=== PATIENT | female | born 1975 | race Caucasian/White ===

== ENCOUNTER 2018-05-03 14:47 | Emergency (ER) | payer MEDICAID, OTHER ==
[~2018-05-03] VITALS: Ht 167.6 cm; Wt 90.7 kg
--- NOTE | 2018-05-03 15:24 | Emergency Room Report ---
History of Present Illness General Chief Complaint: Upper Respiratory Illness Source: Patient (Shree Xiao) Present Illness HPI 42-year-old female patient presents ER complaining of cough for the past 4 days. Reports Raynaud's and congestion during this time. reports cough with sputum, denies hemoptysis. Reports that she has been taking NyQuil and DayQuil for relief of symptoms, last and took DayQuil this morning. Reports history of similar symptoms in the past prior to the onset of bronchitis so she came to the ER to be checked out. Denies difficulty breathing or shortness of breath. Denies fever, chest pain, abdominal pain, vomiting. Denies recent travel or periods of immobilization. Denies smoking cigarettes. Denies calf pain. Denies denies taking control medication. Denies history of heart attack or heart disease. (Shree Xiao) Allergies: Coded Allergies: No Known Allergies (Verified Allergy, Unknown, 08/17/08) Patient History Past Medical History: see triage record Last Menstrual Period: 04/17/18 Now: No Reviewed Nursing Documentation: PMH: Agreed; PSxH: Agreed (Shree Xiao) Nursing Documentation-PMH Past Medical History: No History, Except For (Shree Xiao) Review of Systems All Other Systems: negative except mentioned in HPI (Shree Xiao) Physical Exam Vital Signs Date Time Temp Pulse Resp B/P (MAP) Pulse Ox O2 Delivery O2 Flow Rate FiO2 05/03/18 15:06 99.1 92 18 112/78 95 Room Air 99.1 Sp02 EP Interpretation: reviewed, normal General Appearance: well appearing, no apparent distress, alert, GCS 15, non- toxic Head: normocephalic, atraumatic Eyes: bilateral eye normal inspection, bilateral eye PERRL ENT: hearing grossly normal, normal pharynx, no angioedema, normal voice, TMs + canals normal, uvula midline, moist mucus membranes Neck: full range of motion Respiratory: lungs clear, normal breath sounds, no rhonchi, no respiratory distress, no accessory muscle use, no wheezing, speaking full sentences Cardiovascular #1: regular rate, rhythm, no edema Gastrointestinal: non tender, soft, no mass, non-distended, no guarding, no rebound Musculoskeletal: back normal, digits/nails normal, gait/station normal, normal range of motion, non-tender, no calf tenderness, Juan A's Sign negative Neurologic: alert, oriented x3, responsive, motor strength/tone normal, sensory intact Psychiatric: mood/affect normal Skin: no rash Lymphatic: no adenopathy (Shree Xiao) Medical Decision Making PA Attestation Dr. Thomas is my supervising Physician whom patient management has been discussed with. (Shree Xiao) Diagnostic Impression: Primary Impression: Upper respiratory infection ER Course Pt presents to ED c/o cough for 4 days. DDX considered but are not limited to influenza, viral URI, pneumonia, strep throat, rhinitis, sinusitis, otitis media, bronchitis. Lungs clear to auscultation, no wheezes, rhonci or rales. patient afebrile. due to history of bronchitis, will order chest x-ray to rule out pneumonia. negative Homans sign, denies cigarettes or control medication, no chest pain, no tachycardia, no recent travel or periods of immobilization, low suspicion for PE per PERC criteria. VITAL SIGNS are WNL, patient is afebrile. ER COURSE: provide with cough medication. CXR shows no acute disease, no pneumonia per the preliminary reading. no tonsillar exudates, no pharyngeal erythema, history of cough, no fever, no stridor, uvula midline, low suspicion for peritonsillar abscess. Likely viral etiology of symptoms. Symptomatic treatment. continue taking DayQuil and NyQuil as needed for symptom relief. Will provide albuterol inhaler due to hx of bronchitis. drink plenty of fluids. Salt water gargles for sore throat. Followup with PCP for further treatment and/or referral as needed. ER precautions given. Patient resting comfortably in chair, in no acute distress, talking without difficulty. DISCHARGE: -Rx given for Tessalon Perles -Rx given for albuterol At this time pt is stable for d/c to home. Patient is resting comfortably, in no acute distress, nontoxic appearing. Patient to take medications as instructed Will provide with patient care instructions and any necessary prescriptions. Care plan and follow-up instructions provided. Patient instructed to follow-up with primary care provider in 3 - 5 days. Patient questions asked and answered. Patient reports understanding and agreement to treatment plan. ER precautions given. Patient instructed to return to ER immediately for any new or worsening of symptoms including but not limited to increasing SOB, persistent fever, intractable vomiting. - Please note that this Emergency Department Report was dictated using [employer] tender technology software, occasionally this can lead to erroneous entry secondary to interpretation by the dictation equipment. (Shree Xiao) Chest X-Ray Diagnostic Results Chest X-Ray Diagnostic Results : Chest X-Ray Ordered: Yes # of Views/Limited/Complete: 1 View Indication: Chest Pain EP Interpretation: Yes PA Xray: Interpretation reviewed, by supervising MD, and agrees with findings. Interpretation: no consolidation, no effusion, no pneumothorax, no acute cardiopulmonary disease Impression: No acute disease PA Scribe Text Emir Xiao PA-C (Shree Xiao) Chest X-Ray Diagnostic Results : Electronically Signed by: Peter documentation reviewed by me and is accurate, Ji Thomas MD. (Ji Thomas M.D.) Last Vital Signs Date Time Temp Pulse Resp B/P (MAP) Pulse Ox O2 Delivery O2 Flow Rate FiO2 05/03/18 15:06 99.1 92 18 112/78 95 Room Air 99.1 (Shree Xiao) Last Vital Signs Date Time Temp Pulse Resp B/P (MAP) Pulse Ox O2 Delivery O2 Flow Rate FiO2 05/03/18 15:37 99.1 82 18 112/78 95 Room Air 99.1 (Ji Thomas M.D.) Disposition: HOME, SELF-CARE Condition: Stable Scripts Benzonatate* (TESSALON PERLE*) 100 Mg Capsule 100 MG ORAL THREE TIMES A DAY, #30 PERLE Prov: Shree Xiao 05/03/18 Albuterol Sulfate* (ALBUTEROL SULFATE MDI*) 8.5 Gm Hfa.aer.ad 2 PUFF INH Q6H, #1 INH 0 Refills Prov: Shree Xiao 05/03/18 Patient Instructions: Upper Respiratory Infection, Adult Additional Instructions: Followup with primary care provider in 3 -5 days. Take medications as directed. Patient questions asked and answered. ER precautions given, patient instructed to return to ER immediately for any new or worsening of symptoms. Shree Xiao May 03, 2018 15:24 Ji Thomas M.D. May 04, 2018 03:37
[2018-05-03] MEDS ORDERED: Benzonatate 100mg Perles ORAL ONE (15:30)
[2018-05-03] MEDS ORDERED: ALBUTEROL SULF8.5 GM INH (15:32)
[2018-05-03] MEDS ORDERED: TESSALON PERLE100 MG ORAL (15:32)
[2018-05-03 15:37] VITALS: BP 112/78
--- NOTE | 2018-05-04 08:58 | Diagnostic Imaging Report ---
Indication: Chest pain Technique: One view of the chest Comparison: Findings: Lungs and pleural spaces are clear. Heart size is normal Impression: No acute process
== END 2018-05-03 15:56 | disposition home or self-care (01) ==
LOC: EMR 15:25
DX: J06.9 Acute upper respiratory infection, unspecified (principal)
CPT/HCPCS: 71045; 99283